=== PATIENT | male | born 1995 | race Caucasian/White ===

== ENCOUNTER 2021-01-06 17:54 | Emergency (ER) | payer SELFPAY ==
[~2021-01-06] VITALS: Ht 172.7 cm; Wt 52.3 kg
[2021-01-06 20:18] VITALS: BP 128/69; PULSE 70; TEMP 97.9
== END 2021-01-06 19:45 | disposition home or self-care (01) ==
LOC: COL.ER 17:54
DX: S82.61XA Displaced fracture of lateral malleolus of right fibula, initial encounter for closed fracture (principal); V00.131A Fall from skateboard, initial encounter; Y93.51 Activity, roller skating (inline) and skateboarding

== ENCOUNTER 2021-12-08 05:32 | Day surgery (SDC) | payer SELFPAY ==
[~2021-12-08] VITALS: Ht 167.6 cm; Wt 49.1 kg
[2021-12-08 05:52] VITALS: BP 121/68; PULSE 60; TEMP 98.1
[2021-12-08 09:00] VITALS: BP 126/85; PULSE 81; TEMP 97.7
[2021-12-08 09:15] VITALS: BP 113/66; PULSE 71
[2021-12-08 09:30] VITALS: BP 114/56; PULSE 64
[2021-12-08 09:45] VITALS: BP 105/72; PULSE 73
[2021-12-08 10:00] VITALS: BP 111/78; PULSE 68
--- NOTE | 2021-12-08 11:21 | NUR ---
0900: Patient arrived back into [facility] from PACU. Report received from DARSHANA Johnson. Patient denies pain, states RLE is numb. Able to wiggle toes, cap refill <3 sec. Patient states he does feel nausous from the ride. Requesting water at this time. Friend at bedside with patient. Call light within reach. 0915: Patient resting in room with eyes closed. 0930: Patient states he still feels nausous. PRN zofran given per SEP. 0945: Patient requesting blueberry muffin and applesauce. 1000: Patient tolerated food and drink well. Denies pain and nausea. 1015: Patient up to restroom with crutches and stand by assist. 1020: Patient reports being able to void. Patient to get dressed independently. 1035: Went through discharge instructions with patient and friend. Questions answered. [facility] instrutions added to discharge folder. IV removed without complications, coband applied. Patient escorted to patient entrance via wheelchair. Patient got into personal vehicle unassisted and left in the care of his friend.
== END 2021-12-08 10:45 | disposition home or self-care (01) ==
LOC: SDCO 05:32
DX: M25.371 Other instability, right ankle (principal); M25.871 Other specified joint disorders, right ankle and foot; S93.401A Sprain of unspecified ligament of right ankle, initial encounter
CPT/HCPCS: J1100; J2250; J2405; J2704; J2795; J3010; J7120